=== PATIENT | female | born 1955 | race African-American/Black ===

== ENCOUNTER 2017-11-12 20:45 | Emergency (ER) | payer OTHER ==
[~2017-11-12] VITALS: Ht 160 cm; Wt 62.1 kg
[2017-11-12] MEDS ORDERED: NKM (20:49)
--- NOTE | 2017-11-12 21:11 | Emergency Room Report ---
History of Present Illness General Chief Complaint: Abdominal Pain Source: Patient Present Illness HPI Is a 62-year-old female with a history of chronic abdominal pain with nausea vomiting diarrhea. She says she gets it every 3 or 4 months. Hasn't had one for a few months. She presents with acute onset abdominal pain after eating something this morning. Unable to keep anything down. Pain is severe 10 out of 10. Vomiting is nonbloody nonbilious. Diarrhea is watery. Denies any other complaint. She has multiple workup at [facility] including CT scan and endoscopy. Nothing made it better. Eating or drinking made it worse. Allergies: Coded Allergies: No Known Allergies (Unverified , 11/12/17) Patient History Past Medical History: see triage record, old chart reviewed Past Surgical History: shaq, other Pertinent Family History: none Social History: Denies: smoking Now: No Immunizations: other Reviewed Nursing Documentation: PMH: Agreed; PSxH: Agreed Nursing Documentation-PMH Past Medical History: No Stated History Review of Systems Eye: Denies: eye pain, blurred vision ENT: Denies: ear pain, nose congestion, throat swelling Respiratory: Denies: cough, shortness of breath Cardiovascular: Denies: chest pain, palpitations Gastrointestinal: Reports: abdominal pain, diarrhea, nausea, vomiting Musculoskeletal: Denies: back pain, joint pain Skin: Denies: rash Neurological: Denies: headache, numbness Endocrine: Denies: increased thirst, increased urine Hematologic/Lymphatic: Denies: easy bruising All Other Systems: negative except mentioned in HPI Physical Exam Vital Signs Date Time Temp Pulse Resp B/P (MAP) Pulse Ox O2 Delivery O2 Flow Rate FiO2 11/12/17 20:47 97.8 64 18 136/73 98 Room Air 97.9 vitals normal Sp02 EP Interpretation: reviewed, normal General Appearance: well appearing, no apparent distress, alert, other Head: normocephalic, atraumatic Eyes: bilateral eye PERRL, bilateral eye EOMI ENT: hearing grossly normal, normal pharynx Neck: full range of motion, supple, no meningismus Respiratory: chest non-tender, lungs clear, normal breath sounds Cardiovascular #1: regular rate, rhythm, no murmur Gastrointestinal: no mass, no organomegaly, no bruit, non-distended, tenderness - Diffuse, decreased bowel sounds Musculoskeletal: back normal, gait/station normal, normal range of motion Psychiatric: mood/affect normal Skin: warm/dry Medical Decision Making Diagnostic Impression: Primary Impression: Abdominal pain Qualified Codes: R10.84 - Generalized abdominal pain ER Course Patient presents with episodic abdominal pain. Has been ongoing for many years. She has numerous workup already. Patient her description, she had CT scan, ultrasound, MRCP, endoscopy, colonoscopy. She has previous cholecystectomy. The scans unremarkable except for dilated intra-and extra hepatic bile duct dilatation. This is probably secondary to surgery. Her LFTs and bilirubins are normal. Unlikely to have retained stone. She has no right upper quadrant pain or upper back pain. Pain improved after morphine. No evidence of any obstruction or acute abdomen. We'll discharge home. Last Vital Signs Date Time Temp Pulse Resp B/P (MAP) Pulse Ox O2 Delivery O2 Flow Rate FiO2 11/12/17 20:47 97.8 64 18 136/73 98 Room Air 97.9 Status: improved Disposition: HOME, SELF-CARE Condition: Stable Scripts Hydrocodone/Acetaminophen 5-325* (HYDROCODONE/ACETAMINOPHEN 5-325*) 1 Each Tablet 1 TAB ORAL Q6H PRN for For Pain, #15 TAB 0 Refills Prov: MERON FERNANDEZ M.D. 11/12/17 Patient Instructions: Abdominal Pain, Adult Additional Instructions: Follow-up your DrBrigette in 2-3 days. You may knee referred to see a GI specialist. Return if symptom worsen. MERON FERNANDEZ M.D. Nov 12, 2017 21:11
[2017-11-12] MEDS ORDERED: Morphine Sulfate 4mg/ml Inj (IV USE ONLY) IVP ONE ×2 (21:15→22:45)
[2017-11-12 21:43] LABS: BILIRUBIN, URINE NEGATIVE (NEGATIVE); COLOR,URINE AMBER; GLUCOSE, URINE (UA) NEGATIVE (NEGATIVE); KETONES,URINE 1+ (NEGATIVE); LEUKOCYTE ESTERASE ,URINE 1+ (NEGATIVE); NITRITE,URINE NEGATIVE (NEGATIVE); PH,URINE 5 (4.5-8.0); PROTEIN,URINE 1+ (NEGATIVE); UROBILINOGEN,URINE 1 MG/DL (0.0-1.0)
[2017-11-12 21:43] LABS: BASOPHILS % (AUTO) 1.4 % (0.0-2.0); EOSINOPHILS % (AUTO) 0.7 % (0.0-3.0); HEMATOCRIT 40.5 % (37.0-47.0); HEMOGLOBIN 13.4 G/DL (12.0-16.0); LYMPHOCYTES % (AUTO) 29.3 % (20.0-45.0); MEAN CORPUSCULAR VOLUME 82 FL (80-99); MONOCYTES % (AUTO) 6.2 % (1.0-10.0); NEUTROPHILS % (AUTO) 62.5 % (45.0-75.0); PLATELET COUNT 213 K/UL (150-450); RED BLOOD COUNT 4.93 M/UL (4.20-5.40); RED CELL DISTRIBUTION WIDTH 11.7 % (11.6-14.8); WHITE BLOOD COUNT 7.2 K/UL (4.8-10.8)
[2017-11-12 21:49] LABS: APPEARANCE,URINE SLIGHTLY CLOUDY
[2017-11-12 21:52] LABS: ANION GAP 10 mmol/L (5-15); BLOOD UREA NITROGEN 16 mg/dL (7-18); CALCIUM 9.3 MG/DL (8.5-10.1); CARBON DIOXIDE 23 MMOL/L (21-32); CHLORIDE 106 MMOL/L (98-107); CREATININE 0.7 MG/DL (0.55-1.30); POTASSIUM 3.5 MMOL/L (3.5-5.1); SODIUM 139 MMOL/L (136-145)
[2017-11-12 21:56] LABS: ALANINE AMINOTRANSFERASE 22 U/L (12-78); ALBUMIN 4.2 G/DL (3.4-5.0); ALBUMIN/GLOBULIN RATIO 1.2 (1.0-2.7); ALKALINE PHOSPHATASE 105 U/L (46-116); ASPARTATE AMINO TRANSFERASE 18 U/L (15-37); BILIRUBIN,TOTAL 0.5 MG/DL (0.2-1.0)
[2017-11-12 22:02] VITALS: BP 117/78
--- NOTE | 2017-11-12 22:27 | Diagnostic Imaging Report ---
EXAM: CT Abdomen and Pelvis Without Intravenous Contrast CLINICAL HISTORY: ABD PAIN TECHNIQUE: Axial computed tomography images of the abdomen and pelvis without intravenous contrast. CTDI is 0.15, 14.12 mGy and DLP is 706 mGy-cm. One or more of the following dose reduction techniques were used: automated exposure control, adjustment of the mA and/or kV according to patient size, use of iterative reconstruction technique. COMPARISON: No relevant prior studies available. FINDINGS: Lung bases: Dependent atelectasis. ABDOMEN: Liver: Subcentimeter low-density lesion within the left hepatic lobe, which is nonspecific. Gallbladder and bile ducts: Moderate intra-and extra hepatic bile duct dilatation which may be in part due to prior cholecystectomy. Question filling defect within the distal common bile duct which may be a stone or debris (8-30). Pancreas: Unremarkable. Spleen: Unremarkable. Adrenals: Unremarkable. Kidneys and ureters: Unremarkable. Stomach and bowel: Submucosal fat within the colon, which is nonspecific. PELVIS: Appendix: Appendix is unremarkable. Bladder: Unremarkable. Reproductive: Uterus is surgically absent. ABDOMEN and PELVIS: Intraperitoneal space: Unremarkable. Bones/joints: No acute fracture. No dislocation. Soft tissues: Unremarkable. Vasculature: Unremarkable. No abdominal aortic aneurysm. Lymph nodes: Unremarkable. IMPRESSION: Moderate intra-and extra hepatic bile duct dilatation which may be in part due to prior cholecystectomy. Question filling defect within the distal common bile duct which may be a stone or debris (8-30).
[2017-11-12] MEDS ORDERED: HYDROCODON-ACE1 EA15 ORAL (22:44)
[2017-11-12 22:57] VITALS: BP 118/78
== END 2017-11-12 23:00 | disposition home or self-care (01) ==
LOC: EMR 21:22
DX: R10.84 Generalized abdominal pain (principal); R11.2 Nausea with vomiting, unspecified; R19.7 Diarrhea, unspecified; Q44.5 Other congenital malformations of bile ducts; F17.200 Nicotine dependence, unspecified, uncomplicated; Z90.49 Acquired absence of other specified parts of digestive tract
CPT/HCPCS: 36415; 74176; 80053; 80307; 81003; 83690; 85025; 85610; 85730; 96361; 96374; 96375; 99285; J2270; J2405

== ENCOUNTER 2018-05-03 14:46 | Emergency (ER) | payer OTHER ==
[~2018-05-03] VITALS: Ht 160 cm; Wt 61.2 kg
[~2018-05-03 14:46] MED LIST: HYDROCODON-ACE1 EA15 ORAL; NKM
--- NOTE | 2018-05-03 14:50 | NUR ---
ED Nurse Note: walked in to ED due to pain on right side neck pain that radiated to right shoulder and arm. for 2 days. no recent injury. A + O x4. Ambulatory. Rating the pain an 8/10.
--- NOTE | 2018-05-03 15:52 | Emergency Room Report ---
History of Present Illness General Chief Complaint: Pain Source: Patient Present Illness Allergies: Coded Allergies: No Known Allergies (Unverified , 11/12/17) Patient History Past Medical History: see triage record Past Surgical History: none Pertinent Family History: none Now: No Reviewed Nursing Documentation: PMH: Agreed; PSxH: Agreed Nursing Documentation-PM Past Medical History: No Stated History Physical Exam Vital Signs Date Time Temp Pulse Resp B/P (MAP) Pulse Ox O2 Delivery O2 Flow Rate FiO2 05/03/18 14:53 98.1 75 18 110/78 96 Room Air Medical Decision Making PA Attestation Take medications as directed. Follow up with a Primary Care Provider in 3-5 days, even if your symptoms have resolved. --Please review list of primary care clinics, if you do not already have a primary care provider Return sooner to ED if new symptoms occur, or current symptoms become worse. Do not drink alcohol, drive, or operate heavy machinery while taking Robaxin ( Muscle Relaxers) as this may cause drowsiness. - Please note that this Emergency Department Report was dictated using [employer] liner technology software, occasionally this can lead to erroneous entry secondary to interpretation by the dictation equipment. Diagnostic Impression: Primary Impression: Neck muscle spasm Additional Impression: Neck muscle strain Qualified Codes: S16.1XXA - Strain of muscle, fascia and tendon at neck level , initial encounter Last Vital Signs Date Time Temp Pulse Resp B/P (MAP) Pulse Ox O2 Delivery O2 Flow Rate FiO2 05/03/18 14:53 98.1 75 18 110/78 96 Room Air Disposition: HOME, SELF-CARE Condition: Stable Patient Instructions: Muscle Cramps and Spasms, [id number], Muscle Pain, Adult Additional Instructions: Take medications as directed. Follow up with a Primary Care Provider in 3-5 days, even if your symptoms have resolved. --Please review list of primary care clinics, if you do not already have a primary care provider Return sooner to ED if new symptoms occur, or current symptoms become worse. Do not drink alcohol, drive, or operate heavy machinery while taking Robaxin ( Muscle Relaxers) as this may cause drowsiness. - Please note that this Emergency Department Report was dictated using [employer] liner technology software, occasionally this can lead to erroneous entry secondary to interpretation by the dictation equipment. Kimberlee Scott May 03, 2018 15:52
[2018-05-03] MEDS ORDERED: IBUPROFEN600 MG ORAL (15:54)
[2018-05-03] MEDS ORDERED: LIDODERM700 M1 TOPIC (15:54)
[2018-05-03] MEDS ORDERED: ROBAXIN-750750 MG PO (15:54)
[2018-05-03 16:03] VITALS: BP 105/88
[2018-05-03 16:06] VITALS: BP 112/75
--- NOTE | 2018-05-03 16:06 | NUR ---
ER DISCHARGE NOTE: Patient is cleared to be discharged per ERMD, pt is aox4, on room air, with stable vital signs. pt was given dc and prescription instructions, pt was able to verbalize understanding, pt id band removed without complications. pt is able to ambulate with steady gait. pt took all belongings.
== END 2018-05-03 16:07 | disposition home or self-care (01) ==
LOC: EMR 15:28
DX: M62.838 Other muscle spasm (principal); S16.1XXA Strain of muscle, fascia and tendon at neck level, initial encounter; X58.XXXA Exposure to other specified factors, initial encounter; Y92.9 Unspecified place or not applicable
CPT/HCPCS: 99282

== ENCOUNTER 2019-02-24 09:35 | Emergency (ER) | payer OTHER ==
[~2019-02-24] VITALS: Ht 160 cm; Wt 61.7 kg
[~2019-02-24 09:35] MED LIST changes: +IBUPROFEN600 MG ORAL; +LIDODERM700 M1 TOPIC; +ROBAXIN-750750 MG PO
[2019-02-24] MEDS ORDERED: OMEPRAZOLE20 M2 ORAL (09:46)
[2019-02-24] MEDS ORDERED: LIPITOR80 MG ORAL (09:46)
[2019-02-24] MEDS ORDERED: METFORMIN HCL500 M1 ORAL (09:46)
[2019-02-24 09:59] LABS: APPEARANCE,URINE CLEAR; BILIRUBIN, URINE NEGATIVE (NEGATIVE); COLOR,URINE PALE YELLOW; GLUCOSE, URINE (UA) 4+ (NEGATIVE); KETONES,URINE NEGATIVE (NEGATIVE); LEUKOCYTE ESTERASE ,URINE NEGATIVE (NEGATIVE); NITRITE,URINE NEGATIVE (NEGATIVE); PH,URINE 6 (4.5-8.0); PROTEIN,URINE NEGATIVE (NEGATIVE); UROBILINOGEN,URINE NORMAL MG/DL (0.0-1.0)
--- NOTE | 2019-02-24 10:00 | NUR ---
ED Nurse Note:urine was sent to labs
[2019-02-24 10:04] VITALS: BP 111/76
[2019-02-24] MEDS ORDERED: FLUCONAZOLE150 MG ORAL (10:29)
[2019-02-24 10:35] VITALS: BP 111/76
--- NOTE | 2019-02-24 10:35 | NUR ---
ER DISCHARGE NOTE: Patient is cleared to be discharged per ERMD, pt is aox4, on room air, with stable vital signs. pt was given dc and prescription instructions, pt was able to verbalize understanding, pt is able to ambulate with steady gait. pt took all belongings.
--- NOTE | 2019-02-24 12:33 | Emergency Room Report ---
History of Present Illness General Chief Complaint: Vaginal Source: Patient Present Illness HPI 63-year-old female presents ED for evaluation. Complaining of vaginal itching x1 week. Denies any pain. Denies any discharge or foul smelling odor. Notes some dysuria. Denies flank pain. Denies nausea or vomiting. Denies fevers or chills. No other aggravating relieving factors. Denies any other associated symptoms Allergies: Coded Allergies: No Known Allergies (Unverified , 11/12/17) Patient History Past Medical History: DM Past Surgical History: none Pertinent Family History: none Social History: Denies: smoking, alcohol use, drug use Now: No Immunizations: UTD Reviewed Nursing Documentation: PMH: Agreed; PSxH: Agreed Nursing Documentation-PMH Past Medical History: No History, Except For Hx Diabetes: Yes Review of Systems All Other Systems: negative except mentioned in HPI Physical Exam Vital Signs Date Time Temp Pulse Resp B/P (MAP) Pulse Ox O2 Delivery O2 Flow Rate FiO2 02/24/19 09:41 98.1 76 16 111/76 (88) 95 Room Air Sp02 EP Interpretation: reviewed, normal General Appearance: no apparent distress, alert, GCS 15, non-toxic Head: normocephalic, atraumatic Eyes: bilateral eye normal inspection, bilateral eye PERRL ENT: hearing grossly normal, normal pharynx, no angioedema, normal voice Neck: full range of motion, supple/symm/no masses Respiratory: chest non-tender, lungs clear, normal breath sounds, speaking full sentences Cardiovascular #1: regular rate, rhythm, no edema Cardiovascular #2: 2+ carotid (R), 2+ carotid (L), 2+ radial (R), 2+ radial (L) , 2+ dorsalis pedis (R), 2+ dorsalis pedis (L) Gastrointestinal: normal bowel sounds, non tender, soft, non-distended, no guarding, no rebound Rectal: deferred Genitourinary: normal inspection, no CVA tenderness Musculoskeletal: back normal, normal range of motion, gait/station normal, non- tender Neurologic: alert, motor strength/tone normal, oriented x3, sensory intact, responsive, speech normal Psychiatric: judgement/insight normal, memory normal, mood/affect normal, no suicidal/homicidal ideation Reflexes: 3+ bicep (R), 3+ bicep (L), 3+ tricep (R), 3+ tricep (L), 3+ knee (R) , 3+ knee (L) Lymphatic: no adenopathy Medical Decision Making Diagnostic Impression: Primary Impression: Vaginal irritation ER Course Hospital Course 63 yo F presents with vaginal irritation Differential diagnoses include: UTI, cystitis, pyelonephritis Clinical course Patient placed on stretcher. After initial history and physical I ordered UA UA noted to be unremarkable. No concern for STD. No foul-smelling discharge no odor. We will treat with Diflucan. Discussed findings with patient. Will discharge to home. Safe for discharge. States she has a PMD Diagnosis - vaginal irritation Stable and discharged home with prescriptions for Rx fluconazole. Instructed to followup with PMD. Return to ED if symptoms recur or worsen Labs Test 02/24/19 09:50 Urine Color Pale yellow Urine Appearance Clear Urine pH 6 (4.5-8.0) Urine Specific [place] 1.010 (1.005-1.035) Urine Protein Negative (NEGATIVE) Urine Glucose (UA) 4+ (NEGATIVE) Urine Ketones Negative (NEGATIVE) Urine Blood Negative (NEGATIVE) Urine Nitrite Negative (NEGATIVE) Urine Bilirubin Negative (NEGATIVE) Urine Urobilinogen Normal MG/DL (0.0-1.0) Urine Leukocyte Esterase Negative (NEGATIVE) Last Vital Signs Date Time Temp Pulse Resp B/P (MAP) Pulse Ox O2 Delivery O2 Flow Rate FiO2 02/24/19 10:35 98.1 80 16 111/76 95 Room Air Status: improved Disposition: HOME, SELF-CARE Condition: Stable Scripts Fluconazole (FLUCONAZOLE) 150 Mg Tablet 150 MG ORAL ONCE, #3 TAB Prov: Erick Tapia MD 02/24/19 Patient Instructions: Vaginal Yeast Infection, Adult Erick Tapia MD Feb 24, 2019 12:33
== END 2019-02-24 10:30 | disposition home or self-care (01) ==
LOC: EMR 10:04
DX: L29.2 Pruritus vulvae (principal); E11.9 Type 2 diabetes mellitus without complications
CPT/HCPCS: 81003; Z7502; 99283